=== PATIENT | male | born 1950 | race Caucasian/White ===

== ENCOUNTER 2018-09-13 08:25 | Inpatient (IN) ==
[2018-09-13] MEDS ORDERED: fentaNYL citrate 100 MCG/2 ML VIAL ONE (10:46)
[2018-09-13] MEDS ORDERED: MIDAZOLAM HCL 1 MG/ML 2ML VIAL ONE (10:46)
--- NOTE | 2018-09-13 10:58 | History & Physical Bridge Note ---
Date of Service September 13, 2018 History & Physical Bridge Note I have examined the patient, reviewed the History & Physical and in the interval since the performance of the History & Physical I have noted the following changes of clinical significance: no changes noted. I have explained the risk, benefit and intent to the heart catheterization to the patient. He is willing to proceed.
[2018-09-13] MEDS ORDERED: NiCARDipine HCL INJ 2.5 MG/ML 10 ML AMP ONE (11:44)
[2018-09-13] MEDS ORDERED: NITROGLYCERIN/D5W 100MCG/ML 20ML SYR ONE (11:46)
--- NOTE | 2018-09-13 11:57 | Cardiac Catheterization ---
Date of Service September 13, 2018 Cardiac Cath Report Cardiac Cath Report Procedure: Coronary angiography History: This is a 68-year-old male patient who underwent aortic valve replacement receiving a bioprosthetic in 2013 for aortic stenosis from a bicuspid aortic valve. He also had single-vessel bypass at that time to the right coronary artery with a saphenous vein graft. In 2018 the patient received stents in the proximal and mid LAD. Recently he has been having exertional chest pain and shortness of breath with activity. He did have a negative nuclear stress test however, with his ongoing symptoms it was felt best that we form a catheterization. Procedure summary: After informed consent was obtained the patient was taken to the cardiac catheterization lab where access was obtained from the right femoral artery and vein. Preformed diagnostic catheters were utilized for the coronary angiograms. Following the procedure the patient underwent coronary intervention. ACC data: AUC score 7 Start time 11:11 AM End time 11:44 AM Opening aortic pressure 144/76 Closing aortic pressure 151/77 LVvalve not crossed Sedation 1 mg intravenous Versed IV fluid 50 cc normal saline Contrast 97 cc VISI Fluoroscopy time 2.6 minutes Radiation 1656 mGy DAP 10,662 cGy Right dominant system Coronary angiography: Selective injections of the left coronary artery revealed a left main trunk to be patent. The LAD has a stent from the proximal to midportion which is patent. The remainder of the left anterior descending is patent. The left circumflex artery consists of a large lateral marginal branch which bifurcates. There is minor luminal irregularities but the left circumflex system is patent. Selective injections of the right coronary artery revealed to be occluded distally. In the mid segment there is an eccentric high-grade stenosis. The saphenous vein graft to the right coronary artery distally is patent supplying the PDA and posterior lateral branch. Summary: The patient's previous stents in the LAD are patent. The saphenous vein graft to the PDA and posterior lateral branch of the right coronary artery is patent. There is a high-grade subtotal stenosis in the mid [place] right coronary artery which supplies good portion of the right coronary artery before its occluded distally. Recommendations: I believe the patient would benefit from an intracoronary stent placed in the right coronary artery. Interventional cardiology will review the case.
[2018-09-13] MEDS ORDERED: CLOPIDOGREL BISULFATE 300 MG TAB ONE (12:12)
[2018-09-13] MEDS ORDERED: ACETAMINOPHEN 325 MG TAB PO PRN (12:36)
[2018-09-13] MEDS ORDERED: ONDANSETRON INJ 2 MG/ML 2 ML VIAL IV PRN (12:36)
--- NOTE | 2018-09-13 12:36 | Post Anesthesia Assessment ---
Date of Service September 13, 2018 Post Sedation Assessment Vital Signs Temp Pulse Resp BP Pulse Ox 09/13/18 09:39 36.5 C 59 L 16 173/71 H 94 Recovery Score Activity: Moves 4 extremities Respiration: Deep Breath/Cough Circulation: +/-20% PreAnes Value Consciousness: Fully Awake Oxygen Saturation: O2 needed for >90% Discharge Sedation Level of Care: Fast Track Phase II Post Sedation Plan On clinical assessment, the patient appears to have tolerated the sedation without complications. Patient is recovering as anticipated. Patient will continue to be monitored by nursing and may be discharged when sedation discharge criteria are met per below protocol. Upon Completions of procedure and additional 15 minutes continue every 5 minute vital signs and the P.A.R. score; then discharge to a Phase I or Fast Track to Phase II per the following guidelines: * Discharge Patient to appropriate Phase II area if PAR is 8 or greater or return to pre- procedure baseline. The post - procedure orders will be as directed. * If PAR score is less than 8 or not return to pre-procedure baseline then patient will follow Phase I monitoring till PAR is reached for Phase II. The Phase I may be done in procedure room or may call to secure a Phase I area. * If naloxone or flumazenil are used for reversal, hold in Phase I for continued monitoring from when last reversal dose was given for a minimum of 60 minutes or longer pending the nurse and/or physician discretion of patient condition before discharge to Phase II. Please call the Sedation Physician to re-evaluate and complete post-note for discharge to Phase II area. Do NOT discharge from procedure sedation or Phase 1 until post- sedation evaluation note is complete by procedure /sedation MD Sedation Discharge Instructions to be given to the patient at discharge to home.
--- NOTE | 2018-09-13 12:44 | Cardiac Catheterization ---
Cardiac Cath Procedure: Brief Procedure Date September 13, 2018 Pre-Procedure Diagnosis Pre-Procedure Diagnosis: Angina AUC Score AUC Score: 7 Post-Procedure Diagnosis Post-Procedure Diagnosis: Severe CAD and Successful PCI Procedure(s) Performed Procedure(s) Performed: Coronary Angiography and Drug Eluting Stent Dictaphone Mechanic Tyler Gonzalez MD Needle Process Felt Goods Supervisor(s) Renetta Estimated Blood Loss Estimated Blood Loss: 15 Medication(s) Medication(s): Clopidogrel, Fentanyl, Heparin, Lidocaine 1%, Nicardipine, Nitroglycerin and Versed Preliminary Findings Successful PCI of mid RCA with single MAGDA (3.0 x 18 [place] MAGDA; post-dilated with 3.25 NC). Recommendations Recommendations: PCI without planned CABG Specimens Specimens: None Drains Drains: none Anesthesia moderate Procedural Complication(s) None Disposition PCU
[2018-09-13] MEDS ORDERED: SODIUM CHLORIDE 0.9% 1000ML 1,000 ML IV SCH (14:00)
[2018-09-13] MEDS: HydrALAZINE TAB 50 MG TAB PO SCH ×2 (14:13→21:52)
[2018-09-13] MEDS: SODIUM CHLORIDE 0.9% 1000ML 1,000 ML IV SCH (14:13)
--- NOTE | 2018-09-13 16:30 | Cardiac Catheterization ---
Cardiac Cath Procedure Full Procedure Date September 13, 2018 Pre-Procedure Diagnosis Pre-Procedure Diagnosis: Angina AUC Score AUC Score: 7 Post-Procedure Diagnosis Post-Procedure Diagnosis: Severe CAD and Successful PCI Procedure(s) Performed Procedure(s) Performed: Coronary Angiography and Drug Eluting Stent Commercial Real Estate Associate Tyler Gonzalez MD Drill Doctor(s) Renetta Estimated Blood Loss Estimated Blood Loss: 15 Medication(s) Medication(s): Clopidogrel, Fentanyl, Heparin, Lidocaine 1%, Nicardipine, Nitroglycerin and Versed Summary of Findings Indication: Refractory angina Access: [address] LIGHT SERVICER HELPER Catheters: JR 3.5 guide Findings: For full details of patient's coronary angiography please cath report dictated by Dr. Ledbetter. Briefly, patient found to have patent prior stents, vein graft with 70% focal stenosis and earlymid RCA upstream from large acute marginals. Decision to proceed with PCI. -- PCI -- Antithrombotic therapy: Heparin, clopidogrel Procedure: RCA cannulated with JR 3.5 guide BMW wire passed across lesion into distal vessel Earlymid RCA lesion predilated with 2.5 compliant balloon Dilated lesion stented with 3.0 x 18 mm [place] drug-eluting stent Stent post-dilated with 3.25 noncompliant balloon IC vasodilators administered for spasm Post procedure RADHAMES 3 flow, stent well expanded with minimal residual stenosis and no apparent cardiac complications. Arterial Closure: Angio-Seal. Mynx for 7 Fr right CFV Summary: 1. Successful PCI of mid RCA with single MAGDA (3.0 x 18 [place] MAGDA; post-dilated with 3.25 NC). Recommendations: To PCU for continued monitoring Loaded with clopidogrel 300 mg Continue dual-antiplatelet therapy for at least 6 months, likely extended with multivessel stenting Continue statin, and ASCVD risk factor modification Consult cardiac Rehab Hemodynamics Rest Ao:: 140/60/93 Final Ao: 146/65/98 LV: -- Recommendations Recommendations: PCI without planned CABG Specimens Specimens: None Radiation Exposure (mGy) 2986 Contrast (mls) 277 Fluids (cc crystalloids) Fluids (cc crystalloids): 154 Drains Drains: none Anesthesia moderate Procedural Complication(s) None Disposition PCU ACC Data: Technical Specialist Cardiac Status Clinical evaluation leading to the procedure CAD Presenation: Stable angina Anginal Classification: CCS III Heart Failure: No Cardiogenic Shock within 24 Hours: No Cardiac Arrest within 24 Hours: No Imaging Studies Past 6 Months: No Stress Studies Past 6 Months: No Diagnostic Physicians Name: Tyler Gonzalez MD Status: Elective Closure Device Percutaneous Entry Location: Femoral Closure Device: Angio-Seal Recommendations: PCI without planned CABG PCI Indication: Angina despite med therapy Lesion Segment Name: early-mid RCA Culprit Artery: Yes Stenosis Prior to Rx (%): 70 Chronic Total Occlusion: No IVUS: No FFR: No Pre-Procedure RADHAMES Flow: 3 Previously Treated Lesion: No Lesion Complexity: High/C Lesion Length (mm): 15 Thrombus Present: No Bifurcation Lesion: No Guidewire Across Lesion: Stenosis Post-Procedure (%): 0 Post-Procedure RADHAMES Flow: 3 Devices(s) Deployed: Yes Yes Intraprocedure Events Significant Disection: No Perforation: No
[2018-09-13] MEDS ORDERED: DOXAZOSIN MESYLATE 1 MG TAB PO SCH (21:00)
[2018-09-13] MEDS ORDERED: ROSUVASTATIN CALCIUM 20 MG TAB PO SCH (21:00)
[2018-09-13] MEDS: METOPROLOL TARTRATE 50 MG TAB PO SCH (21:51)
[2018-09-14] MEDS: SODIUM CHLORIDE 0.9% 1000ML 1,000 ML IV SCH (00:50)
[2018-09-14 06:23] LABS: Basophils # (auto) 0.05 K/uL (0-0.2); Basophils % (auto) 0.4 %; Eosinophils # (auto) 0.34 K/uL (0-0.5); Eosinophils % (auto) 2.9 %; Hematocrit (blood only) 43.2 % (42-52); Hemoglobin 15.5 g/dL (14.0-18.0); Immature Granulocytes # (auto) 0.03 K/uL (0.00-0.02); Immature Granulocytes % (auto) 0.3 %; Lymphocytes # (auto) 1.13 K/uL (1.2-3.4); Lymphocytes % (auto) 9.8 %; Mean Corpuscular Hgb Conc 35.9 g/dL (32-36); Mean Corpuscular Volume 88.5 fL (80-100); Mean Platelet Volume 9.9 fL (7.4-10.4); Monocytes # (auto) 1.54 K/uL (0.11-0.59); Monocytes % (auto) 13.4 %; Neutrophils # (auto) 8.44 K/uL (1.4-6.5); Neutrophils % (auto) 73.2 %; Platelet Count 223 K/uL (130-400); RDW Coefficient of Variation 12.8 % (11.5-14.5); Red Blood Count 4.88 M/uL (4.7-6.1); White Blood Count 11.53 K/uL (4.8-10.8)
[2018-09-14] MEDS: HydrALAZINE TAB 50 MG TAB PO SCH (08:04)
[2018-09-14] MEDS: METOPROLOL TARTRATE 50 MG TAB PO SCH (08:05)
--- NOTE | 2018-09-14 08:06 | XRay Report ---
XR chest 1V portable HISTORY: Shortness of breath. COMPARISON: None. FINDINGS: No pneumothorax. No pleural effusions. No focal lung consolidations to suggest pneumonia. T he heart is mildly enlarged. There are poststernotomy changes. Mild central pulmonary vascular conges tion without overt edema. IMPRESSION: Cardiomegaly with mild central pulmonary vascular congestion. Electronically signed by: Pavel Yepez M.D. 09/14/2018 8:04 AM
[2018-09-14] MEDS ORDERED: CITALOPRAM 20 MG TAB PO SCH (09:00)
[2018-09-14] MEDS ORDERED: AMLODIPINE BESYLATE 5 MG TAB PO SCH (09:00)
[2018-09-14] MEDS ORDERED: ASPIRIN 81 MG ECTAB PO SCH (09:00)
[2018-09-14] MEDS ORDERED: CLOPIDOGREL BISULFATE 75 MG TAB PO SCH (09:00)
[2018-09-14] MEDS ORDERED: LISINOPRIL 40 MG TAB PO SCH (09:00)
--- NOTE | 2018-09-14 11:29 | Discharge Summary ---
Date of Service September 14, 2018 Principal Diagnosis Principal Diagnosis 1. Coronary artery disease 2. Status post CABG and AVR 3. Previous coronary stent LAD Discharge Exam General: no acute distress and stated age Head: normocephalic, no masses, lesions, tenderness or abnormalities Eyes: conjunctiva are pink and non-injected, sclera clear Neck: supple, no adenopathy, no bruits, normal jugular venous pulse, no hepatojugular reflux Chest: normal shape and normal respiratory effort Lungs: clear to auscultation and percussion Cardiac Exam: - regular rate & rhythm, no murmurs gallops or rubs - normal S1, normal S2 Pulses: 2(+) throughout Abdomen: abdomen soft, non-tender, no abnormal masses and no hepatosplenomegaly Musculoskeletal: no gait disturbance, no joint inflammation, no deforming arthritis Extremities: no edema and no cyanosis Neuro: grossly normal exam Discharge Data Allergies Allergy/AdvReac Type Severity Reaction Status Date / Time No Known Allergies Allergy Unverified 05/19/17 07:09 Consultations 09/13/18 12:39 Consult Cardiac Rehabilitation Routine Procedures Performed Operation Date: 09/13/18 09:30 Actual Procedures p Cath, Left with Cors and Vent - Jose Luis Ledbetter DO s Cineradiography w/Routine Exam - DO zenon Noel Drug Eluting Stent SGl Vessel - Anibal Gonzalez MD Ordered Studies 09/13/18 06:58 CL Cath Imgs for PACS use only Routine Hospital Course (1) Coronary artery disease: Patient had an additional coronary stent placed in the right coronary artery. (2) S/P AVR: (3) Hx of CABG: Previous single-vessel bypass was patent (4) Stented coronary artery: Total Time Total Time Spent Total Time Spent (In Minutes): 30 minutes Total Time Includes: Examination of the Patient, Discharge Planning, Medication Reconciliation and Communication With Other Providers Discharge Plan Discharge Items Patient Disposition: Home - Self-Care Reason For Visit: Angina Discharge Diagnosis: Coronary artery disease with coronary stent placement right coronary artery. Previous AVR and CABG. Previous coronary stent LAD Discharge Goals: Decrease discomfort and Diagnostic testing Activity: Resume your previous activity Non-emergency contact: Metal Mockup Maker Call non-emergency contact if: you have any medication questions, your symptoms worsen, your pain is not controlled, your pain is worsening, your pain is unusual for you, your pain is concerning for you, you have a fever, your temperature is above 100.5, your wound has increased redness, your wound has increased drainage and your wound pain has increased Follow-up/Referrals: PCP,NO [Primary Care Provider] - Diet: Low Fat Addtl Provider Instructions: ACTIVITY RECOMMENDATIONS: It is common to feel weak and fatigue for a few days. * Do not drive or operate any motorized equipment for the next three days. * Limit stair usage (2 or 3 trips a day only) for the next three days. * Do not lift anything heavier than 10 pounds for the next three days. * Do not engage in vigorous exercise or any sports for the next five days. * You may shower the day after your procedure, but do not immerse the area for three days. Cleanse the site gently with soap and water. SPECIAL CARE INSTRUCTIONS: * You may replace the pressure dressing or band-aid the morning after the procedure. * After your procedure, it is normal to have a small bruise or small lump at the site. Examine your site daily for any change in the bruise or lump, redness, swelling, drainage or numbness. Notify your doctor if any change. BLEEDING: * If there is a small amount of bleeding at the site, lie down and apply firm pressure with a clean cloth for ten minutes. When the bleeding stops, lie quietly keeping the procedure limb straight for six hours. Notify your doctor as soon as possible. * If the bleeding does not stop after ten minutes or if there is a large amount of bleeding or spurting, call 911 immediately. Continue to lie down and hold firm pressure until help arrives. SKIN IRRITATION: * You may experience some redness and/or swelling in the area where radiation was administered. If any skin irritation occurs, please contact your family physician. FOLLOW UP VISIT: Keep any scheduled doctor appointments. Prescriptions: New clopidogrel 75 mg Tablet 75 mg PO QAM Qty: 30 RF: 11 Continued Amlodipine (Norvasc) 10 MG tablet 10 mg PO DAILY Qty: 0 RF: 0 CITALOPRAM HYDROBROMIDE (CELEXA) 10 MG tablet 1 tab PO DAILY 30 Days Qty: 30 RF: 2 DOXAZOSIN MESYLATE (CARDURA) 1 MG tablet 1 tab PO HS Qty: 0 RF: 0 Lisinopril (Zestril) 40 MG tablet 40 mg PO DAILY Qty: 0 RF: 0 Metoprolol Tartrate (Lopressor) (Lopressor) 50 MG tablet 75 mg PO BID Qty: 0 RF: 0 Aspirin (Aspirin EC Low Dose) 81 MG ENTERIC COATED TAB 81 mg PO QAM 30 Days Qty: 30 RF: 6 Clopidogrel Bisulfate (Clopidogrel) 75 MG tablet 75 mg PO QAM 30 Days Qty: 30 RF: 6 Rosuvastatin Calcium (Crestor) 20 MG tablet 20 mg PO HS Qty: 30 RF: 6 hydralazine 50 mg Tablet 1 tab PO TID RF: 0 Stand-Alone Forms: [facility] Discharge Orders: Discharge Order (Routine); Ordered 09/14/18 Ordered By: Jose Luis Ledbetter Admission Data Admit Date/Time: 09/13/18 11:59 Attending Provider: Jose Luis Ledbetter Admit Provider: Jose Luis Ledbetter Primary Care Provider: PCP,NO Service: Telemetry
== END 2018-09-14 13:02 | disposition home or self-care (01) | DRG 247 ==
LOC: CC 08:25 → 2E 08:25 → OBSVTOIN 11:59